=== PATIENT | male | born 1965 | race Caucasian/White ===

== ENCOUNTER → 2016-08-16 | Outpatient (CLI) | payer BC ==
[2016-08-16 14:40] VITALS: BP 117/72; PULSE 84; RESP 14; TEMP 99; BMI 40.8
--- NOTE | 2016-08-16 14:46 | P.HPBAR ---
Bariatric H&P - History & Physicial H&P Date: 08/16/16 History & Physicial: Visit/CC: band fill Patient initial contact: Initial weight: 136.078 kg Initial weight in pounds: 300.00 Height: 5 ft 11 in Initial BMI: 41.8 Last weight: Current weight: 132.903 kg Current weight in pounds: 293.00 Current BMI: 40.8 [place] body weight (based on NIH guidelines): 78.018 kg Excess body weight loss: 5.4% The patient is a 51 year-old M who presents for Bariatric Assessment. This is a new patient to myself. Patient had lap band surgery by Dr. Leonard in 2009 at [facility]. He can't really last time he was adjusted. He states initially he weight 300 pounds. Today he weighs 293 pounds. He's not sure of his LAP-BAND is empty however he feels no restriction.. Review of Systems Constitutional: Reports as per HPI Past Medical History Past Medical History: Cancer, Hypertension, Thyroid Disorder Additional Past Medical History / Comment(s): hx of thyroid cancer History of Any Multi-Drug Resistant Organisms: None Reported Past Surgical History: Bariatric Surgery, Orthopedic Surgery Additional Past Surgical History / Comment(s): left hip replacement x 2 gastric band 2009 hx of thyroid cancer thyroidectomy Past Anesthesia/Blood Transfusion Reactions: No Reported Reaction Past Psychological History: No Psychological Hx Reported, Depression Smoking Status: Never smoker Past Alcohol Use History: None Reported Past Drug Use History: None Reported - Past Family History Father Additional Family Medical History / Comment(s): at age 78 from asbestos lung disease Mother Family Medical History: Cancer Additional Family Medical History / Comment(s): colon cancer survivor, currently age 83 Surgical - Exam Vital Signs Temp Pulse Resp BP 99.0 F 84 14 117/72 08/16/16 14:24 08/16/16 14:24 08/16/16 14:24 08/16/16 14:24 - General well developed, no distress - Eyes PERRL - ENT normal pinna - Neck no masses - Cardiovascular Rhythm: regular - Abdomen Abdomen: soft, non tender Bariatric Assessment & Plan Plan: The patient LAP-BAND was adjusted. He hasn't 1 mL added to his band. He currently has 7 mL in the band. He'll follow-up in one month for recheck. Bariatric Checklist Checklist: Plan: Checklist: EGD: 1. Hiatal hernia: 2. H. Pylori: HgbA1c: Vitamin D: Smoking: Never smoker Primary care physician referral: hilda turner ([email or web address]) Psychiatry clearance: Cardiology clearance: Sleep study: Diet journal: VTE risk score: VTE risk level: Rehab needs at discharge:
== END | disposition home or self-care (01) ==
LOC: BARWHC3 13:17
PROVIDERS: ATTEND Surgery
DX: Z48.815 Encounter for surgical aftercare following surgery on the digestive system (principal); Z98.84 Bariatric surgery status; Z68.41 Body mass index [BMI] 40.0-44.9, adult
CPT/HCPCS: 99202